=== PATIENT | male | born 1965 | race Caucasian/White ===

== ENCOUNTER 2017-07-27 16:58 | Emergency (ER) | payer OTHER ==
[2017-07-27 17:40] VITALS: BP 146/84; PULSE 68; RESP 18; TEMP 98.3; O2SAT 97
[2017-07-27 17:48] VITALS: BP 158/94; PULSE 70; RESP 18; O2SAT 97
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
[2017-07-27 18:06] LABS: BASOPHIL # 0.1 TH/MM3 (0-0.2); BASOPHIL % 0.7 % (0.0-2.0); EOSINOPHIL # 0.1 TH/MM3 (0-0.4); EOSINOPHIL % 1.6 % (0.0-4.0); HEMATOCRIT 44.6 % (39.0-51.0); HEMOGLOBIN 15.2 GM/DL (13.0-17.0); LYMPH % 29.2 % (9.0-44.0); LYMPHOCYTE # 2.4 TH/MM3 (1.0-4.8); MEAN CELL VOLUME 89.5 FL (80.0-100.0); MEAN CORPUSCULAR HEMOGLOBIN 30.5 PG (27.0-34.0); MEAN CORPUSCULAR HGB CONC 34.1 % (32.0-36.0); MEAN PLATELET VOLUME 9.5 FL (7.0-11.0); MONO % 7.7 % (0.0-8.0); MONOCYTE # 0.6 TH/MM3 (0-0.9); NEUT % 60.8 % (16.0-70.0); PLATELET COUNT 209 TH/MM3 (150-450); RED BLOOD COUNT 4.98 MIL/MM3 (4.50-5.90); RED CELL DISTRIBUTION WIDTH 12.5 % (11.6-17.2); WHITE BLOOD COUNT 8.2 TH/MM3 (4.0-11.0)
[2017-07-27 18:24] LABS: CALCIUM 8.5 MG/DL (8.5-10.1)
[2017-07-27 18:27] LABS: PROTHROMBIN TIME - PATIENT 10.2 SEC (9.8-11.6)
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
[2017-07-27] MEDS ORDERED: IOHEXOL 350 MG/ML 10 ML VIAL (for RAD DIAG) IVCONTRAST ONE (19:01)
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
[2017-07-27] MEDS ORDERED: CYCL10TA PO (19:15)
[2017-07-27] MEDS ORDERED: IBUPROFEN 600 MG TAB PO ONE (19:15)
[2017-07-27] MEDS ORDERED: CYCLOBENZAPRINE HCL 10 MG TAB PO ONE (19:15)
[2017-07-27] MEDS ORDERED: IBUP-232 PO (19:15)
[2017-07-27 19:58] VITALS: BP 140/68; PULSE 72; RESP 18; O2SAT 98
== END 2017-07-27 20:14 | disposition home or self-care (01) ==
LOC: PHED 16:58
DX: M50.20 Other cervical disc displacement, unspecified cervical region (principal); V49.59XA Passenger injured in collision with other motor vehicles in traffic accident, initial encounter
CPT/HCPCS: 70450; 71260; 72125; 74177; 80048; 85025; 85610; 85730; 86850; 86900; 86901; 99284; Q9967